=== PATIENT | female | born 1975 | race Caucasian/White ===

== ENCOUNTER 2017-06-16 08:52 | Day surgery (SDC) | payer BC ==
[2017-06-12 13:17] LABS: BASOPHILS # (AUTO) 0.4 K/uL (0.00-0.22); EOSINOPHILS # (AUTO) 0.3 K/uL (0-0.4); EOSINOPHILS % (AUTO) 2.9 % (0.0-4.0); HEMATOCRIT 39.5 % (36-48); LYMPHOCYTES # (AUTO) 1.8 K/uL (2.5-16.5); LYMPHOCYTES % (AUTO) 19.2 % (20.5-51.1); MEAN CORPUSCULAR HEMOGLOBIN 30 pg (27-31); MEAN CORPUSCULAR HGB CONC 33 g/dL (33-37); MEAN CORPUSCULAR VOLUME 91 fL (80-94); MONOCYTES # (AUTO) 0.8 K/uL (0.8-1.0); MONOCYTES % (AUTO) 7.9 % (1.7-9.3); NEUTROPHILS # (AUTO) 6.3 K/uL (1.8-7.7); PLATELET COUNT (AUTO) 201 K/uL (140-450); RED BLOOD CELL COUNT(AUTO) 4.36 MIL/uL (4.20-5.40); RED CELL DISTRIBUTION WIDTH 12.1 % (11.6-13.7); WHITE BLOOD COUNT (AUTO) 9.6 K/uL (4.8-10.8)
[2017-06-12 13:31] LABS: ALBUMIN 3.5 g/dL (3.4-5.0); ANION GAP 8.9 (8-16); CARBON DIOXIDE 29.8 mmol/L (21-32); CREATININE 0.7 mg/dL (0.6-1.3); POTASSIUM 3.7 mmol/L (3.5-5.1); TOTAL BILIRUBIN 0.3 mg/dL (0.0-1.0)
[~2017-06-16] VITALS: Ht 160 cm; Wt 74.8 kg
[2017-06-16] MEDS ORDERED: BUPIVACAINE-MPF 0.25% 30 ML VIAL INJ ONE (11:52)
[2017-06-16] MEDS ORDERED: SEVOFLURANE 250 ML BTL INH ONE (12:42)
[2017-06-16] MEDS ORDERED: PROPOFOL 200 MG/20 ML VIAL IV ONE (12:42)
[2017-06-16] MEDS ORDERED: ePHEDrine 50 MG/ML VIAL IV ONE (12:42)
[2017-06-16] MEDS ORDERED: LIDOCAINE 2% 100 MG/5 ML SYR IVP ONE (12:42)
[2017-06-16] MEDS ORDERED: MIDAZOLAM 2 MG/2 ML VIAL ONE (12:55)
[2017-06-16] MEDS ORDERED: fentaNYL 0.05 MG/ML VIAL ONE (12:55)
[2017-06-16] MEDS ORDERED: ONDANSETRON 4 MG/2 ML VIAL IV PRN (14:10)
[2017-06-16] MEDS ORDERED: NACL 0.9% 1,000 ML IV SCH (14:10)
[2017-06-16] MEDS ORDERED: HYDROcodone/APAP 5/325 MG 1 TAB TAB PO PRN (14:10)
[2017-06-16] MEDS ORDERED: HYDROmorphone PFS 2 MG/ML SYR IVP PRN (14:10)
[2017-06-16] MEDS ORDERED: MORPHINE SULFATE 2 MG/ML SYR IVP PRN (14:10)
[2017-06-16] MEDS ORDERED: MORPHINE SULFATE 4 MG/ML SYR IV PRN (14:10)
[2017-06-16] MEDS ORDERED: ONDANSETRON 4 MG/2 ML VIAL IVP PRN (14:35)
[2017-06-16] MEDS ORDERED: HYDROmorphone PFS 2 MG/ML SYR ONE (14:36)
[2017-06-16] MEDS: HYDROmorphone PFS 2 MG/ML SYR IVP PRN ×2 (14:36→15:07)
[2017-06-16 15:36] VITALS: BP 142/83
--- NOTE | 2017-06-16 15:37 | NUR ---
PATIENT WAS TRANSFERRED FROM OR. REPORT WAS GIVEN AT BEDSIDE. PATIENT IS DROWSY, AROUSABLE BY NAME. VS TAKEN. DRESSING DRY AND INTACT. DISCUSSED PLAN OF CARE WITH PATIENT AND FAMILY. PATIENT VERBALIZED NO PAIN OR DISCOMFORT. CALL LIGHT WITHIN REACH. WILL CONTINUE TO MONITOR
--- NOTE | 2017-06-16 16:21 | NUR ---
PT AWAKE SITTING UP TALKING WITH , DENIES N/V, STATES PAIN IS TOLERABLE, VS STABLE, STARTED ON CLEAR LIQ, WILL CONTINUE TO MONITOR.
[2017-06-16 16:23] VITALS: BP 128/72
--- NOTE | 2017-06-16 16:50 | NUR ---
PT CODY PO CLEAR LIQ AND CRACKERS, AMBULATED TO BATHROOM WITH MINIMAL ASSIST, VOIDED WITHOUT PROBLEM, DC INSTRUCTION GIVEN AND EXPLAINED, PT VERBALIZED FULL UNDERSTANDING, WILL DC HOME WITH .
--- NOTE | 2017-06-16 17:19 | NUR ---
PT VOMITED X1, ZOFRAN GIVEN, HOLD DC FOR NOW, WILL CONTINUE TO MONITOR.
--- NOTE | 2017-06-16 18:44 | NUR ---
PT STATES PAIN IS BETTER, PT UP OUT OF BED WITOUT PROBLEM, WHEELCHAIR TO FRONT OFFICE FOR DC HOME, DC HOME NOW WITH .
[2017-06-16 18:53] VITALS: BP 129/78
== END 2017-06-16 18:52 | disposition home or self-care (01) ==
LOC: MMU 08:52 → MDS 08:52
PROVIDERS: ATTEND Surgery
DX: D24.1 Benign neoplasm of right breast (principal); E66.3 Overweight; J45.909 Unspecified asthma, uncomplicated; K21.9 Gastro-esophageal reflux disease without esophagitis; F17.210 Nicotine dependence, cigarettes, uncomplicated; N18.9 Chronic kidney disease, unspecified; I12.9 Hypertensive chronic kidney disease with stage 1 through stage 4 chronic kidney disease, or unspecified chronic kidney disease; E11.22 Type 2 diabetes mellitus with diabetic chronic kidney disease; D64.9 Anemia, unspecified; F03.90 Unspecified dementia, unspecified severity, without behavioral disturbance, psychotic disturbance, mood disturbance, and anxiety; G40.901 Epilepsy, unspecified, not intractable, with status epilepticus
CPT/HCPCS: 19120; 36415; 71010; 80053; 81025; 85025; 87070; 87075; 87205; J0690; J1170; J2001; J2250; J2405; J2704; J3010; J3490; J7060; J7120